=== PATIENT | female | born 1980 | race Hispanic/Latino ===

== ENCOUNTER 2019-12-27 13:01 | Emergency (ER) | payer OTHER, MEDICAID, SELFPAY ==
[2019-12-27 13:12] VITALS: PULSE 89; RESP 24; TEMP 35.6; O2SAT 100
[2019-12-27 13:20] VITALS: BP 130/73
--- NOTE | 2019-12-27 13:20 | DI.RAD.S_ITS ---
PROCEDURE: XR CHEST 1V INDICATIONS: suspected sepsis TECHNIQUE: One view of the chest was acquired. COMPARISON: [facility], , CHEST 2VW, 01/04/2009, 23:03. FINDINGS: Surgical changes and devices: None. Lungs and pleura: Lungs are clear. No pleural effusions or pneumothorax. Mediastinum: Mediastinal contours appear normal. Heart size is normal. Bones and chest wall: No suspicious bony lesions. Overlying soft tissues appear unremarkable. IMPRESSION: No acute cardiopulmonary abnormality. Dictated by: Taqueria Bains M.D. on 12/27/2019 at 12:57 Approved by: Taqueria Bains M.D. on 12/27/2019 at 12:58
[2019-12-27 13:40] VITALS: PULSE 78; RESP 18; O2SAT 98
[2019-12-27] MEDS: SODIUM CHLORIDE 0.9% 1,000 ML 1000 ML IV (13:46)
[2019-12-27 14:00] LABS: Add Manual Diff / Slide Review NO; Basophils Absolute Auto 0 /uL (0-100); Basophils Percent Auto 0.5 % (0-2); Eosinophils Absolute Auto 100 /uL (0-450); Eosinophils Percent Auto 1.2 % (2-4); Hematocrit 42.1 % (36-46); Hemoglobin 14.2 g/dL (12.0-16.0); Lymphocytes Absolute Auto 1500 /uL (1100-4500); Lymphocytes Percent Auto 26.5 % (25-40); Mean Corpuscular HGB Conc 33.8 % (30-36); Mean Corpuscular Hemoglobin 30.3 PG (26-34); Mean Corpuscular Volume 89.7 fL (80-100); Monocytes Absolute Auto 800 /uL (0-900); Monocytes Percent Auto 13.6 % (3-14); Neutrophils Absolute Auto 3400 /uL (1500-7000); Neutrophils Percent Auto 58.2 % (50-75); Platelet Count 315 X10^3/uL (150-400); Red Cell Distribution Width 12.6 % (11.6-14.8); White Blood Cell Count 5.8 X10^3/uL (4.5-11.0)
[2019-12-27 14:08] LABS: INR 1.1 (0.9-1.3); Prothrombin Time 12.3 SECONDS (10.1-12.7)
[2019-12-27 14:10] LABS: PTT Partial Thromboplastin Tim 29 SECONDS (26.4-36.2)
--- NOTE | 2019-12-27 14:10 | ED.FEVER ---
HPI - Fever General Chief Complaint: Fever Stated Complaint: Body Aches, Diarreha, Cough, Fever Time Seen by Provider: 12/27/19 13:41 Source: patient Mode of arrival: Ambulatory Limitations: no limitations History of Present Illness HPI Narrative: The patient is a 39-year-old female who presents with generalized body aches fever diarrhea abdominal pain ongoing for the last 2-3 days. She says she has had multiple episodes of liquid nonbloody diarrhea and even incontinence at times. She feels nauseated but no real vomiting. She has some abdominal cramping. She has had body aches and fever as well. Family members have had similar symptoms 1 was exposed to COVID-19. She denies any respiratory symptoms. She just got out of and ice bath in overall continues to not feel well. She was seen and evaluated at [facility] on December 24 for the same. Related Data Previous Rx's Medication Instructions Recorded ciprofloxacin HCl [Cipro] 500 mg PO BID #14 tab 12/27/19 metronidazole [Flagyl] 500 mg PO TID #21 tab 12/27/19 Allergies Allergy/AdvReac Type Severity Reaction Status Date / Time No Known Drug Allergies Allergy Verified 12/27/19 13:17 Review of Systems Review of Systems Narrative: GENERAL: See HPI HEENT: Denies sinus pain, ear pain, sore throat, difficulty swallowing, neck pain RESPIRATORY: Denies dyspnea, cough, wheezing, hemoptysis, sputum. CARDIOVASCULAR: Denies chest pain, palpitations, orthopnea, edema GASTROINTESTINAL: See HPI : Denies dysuria, frequency, incontinence, hematuria, urinary retention, flank pain. MUSCULOSKELETAL: Denies weakness, joint pain, or bony pain SKIN: No rash, no erythema, no pruritus NEUROLOGIC: Denies weakness, dizziness, headache, numbness, change in speech, confusion PSYCHIATRIC: No concerning psychosocial issues. 12 point review of systems is negative except for those stated above and HPI Patient History Social History Smoking Status: Current some day smoker Smoking Status: Current some day smoker Exam Initial Vital Signs Initial Vital Signs: Vital Signs Temperature 96.0 F L 12/27/19 13:12 Pulse Rate 89 12/27/19 13:12 Respiratory Rate 24 12/27/19 13:12 Pulse Oximetry 100 12/27/19 13:12 GENERAL: The patient appears to not feel well and in no acute distress. HEENT: Head atraumatic,EOMI, pupils reactive, face symmetric, moist mucous membranes CARDIOVASCULAR: Regular rate and rhythm without murmurs, rubs or gallops. RESPIRATORY: Breath sounds equal bilaterally, no wheezes rales or rhonchi. ABDOMEN: Soft mild diffuse tenderness EXTREMITIES: Normal range of motion, no clubbing or edema. Neurovascularly intact NEUROLOGICAL: Alert and oriented x4.Normal gait and speech. SKIN: Warm, dry, no laceration, no petechiae, no rashes or lesions. Course Orders Ordered: ED Orders 12/27/19 13:20 XR chest 1V Stat EKG-12 Lead Stat RT Consult Eval and Treat Now 12/27/19 13:30 COVID19 -ED/INPAT/OR/L&D Stat Complete Blood Count AUTO DIFF Stat Comprehensive Metabolic Panel Stat Lactate (Lactic Acid) Stat Lipase Stat Partial Thromboplastin Time Stat Procalcitonin Stat Prothrombin Time INR Stat 12/27/19 13:38 Blood Culture Stat 12/27/19 14:36 CT abdomen pelvis w con Stat Discontinued Medications Sodium Chloride (Normal Saline 0.9%) 1,000 mls @ 1,000 mls/hr IV BOLUS ONE Stop: 12/27/19 14:18 Last Infusion: 12/27/19 14:38 Dose: 0 mls/hr Documented by: Admin: 12/27/19 13:46 Dose: 1,000 mls/hr Documented by: PERFECTO Ketorolac Tromethamine (Toradol) 30 mg IV NOW ONE Stop: 12/27/19 14:32 Last Admin: 12/27/19 14:48 Dose: 30 mg Documented by: SCOTT Ondansetron HCl (Zofran) 4 mg IV NOW ONE Stop: 12/27/19 15:30 Last Admin: 12/27/19 15:42 Dose: 4 mg Documented by: TAYLOR Potassium Chloride (Klor-Con M20) 40 meq PO NOW ONE Stop: 12/27/19 15:34 Last Admin: 12/27/19 15:42 Dose: 40 meq Documented by: TAYLOR Vital Signs Vital signs: Vital Signs - 8 hr 12/27/19 13:12 12/27/19 13:20 12/27/19 13:40 Temperature 96.0 F L Pulse Rate 89 78 Respiratory Rate 24 18 Blood Pressure 130/73 Pulse Oximetry 100 98 12/27/19 14:51 12/27/19 16:25 Temperature 96.8 F L Pulse Rate 79 78 Respiratory Rate 20 16 Blood Pressure Pulse Oximetry 100 100 MDM - Fever Lab Data Attestation: I reviewed the patient's lab results. Result diagrams: 12/27/19 13:30 12/27/19 13:30 Labs: Lab Results 12/27/19 12/27/19 12/27/19 Range/Units 13:30 13:30 13:30 WBC 5.8 (4.5-11.0) X10^3/uL RBC 4.70 (4.0-5.2) X10^6/uL Hgb 14.2 (12.0-16.0) g/dL Hct 42.1 (36-46) % MCV 89.7 (80-100) fL MCH 30.3 (26-34) PG MCHC 33.8 (30-36) % RDW 12.6 (11.6-14.8) % Plt Count 315 (150-400) X10^3/uL Neut % (Auto) 58.2 (50-75) % Lymph % (Auto) 26.5 (25-40) % [place] % (Auto) 13.6 (3-14) % Eos % (Auto) 1.2 L (2-4) % Baso % (Auto) 0.5 (0-2) % Neut # (Auto) 3400 (2175-7398) /uL Lymph # (Auto) 1500 (0251-4678) /uL [place] # (Auto) 800 (0-900) /uL Eos # (Auto) 100 (0-450) /uL Baso # (Auto) 0 (0-100) /uL PT 12.3 (10.1-12.7) SECONDS INR 1.1 (0.9-1.3) APTT 29 (26.4-36.2) SECONDS Sodium (137-145) mmol/L Potassium (3.4-5.1) mmol/L Chloride (98-107) mmol/L Carbon Dioxide (22-32) mmol/L BUN (7-17) mg/dL Creatinine (0.52-1.04) mg/dL Estimated GFR (>60) mL/min BUN/Creatinine Ratio (6-22) Glucose (70-100) mg/dL Lactate (0.7-2.1) mmol/L Calcium (8.4-10.2) mg/dL Total Bilirubin (0.2-1.3) mg/dL AST (14-36) IU/L ALT (<35) IU/L Alkaline Phosphatase (38-126) U/L Total Protein (6.3-8.2) g/dL Albumin (3.5-5.0) g/dL Globulin (1.7-4.1) g/dL Albumin/Globulin Ratio (1.0-2.8) Lipase (23-300) U/L Procalcitonin < 0.05 (<0.5) ng/mL COVID-19 PCR (Negative) 12/27/19 12/27/19 12/27/19 Range/Units 13:30 13:30 13:30 WBC (4.5-11.0) X10^3/uL RBC (4.0-5.2) X10^6/uL Hgb (12.0-16.0) g/dL Hct (36-46) % MCV (80-100) fL MCH (26-34) PG MCHC (30-36) % RDW (11.6-14.8) % Plt Count (150-400) X10^3/uL Neut % (Auto) (50-75) % Lymph % (Auto) (25-40) % [place] % (Auto) (3-14) % Eos % (Auto) (2-4) % Baso % (Auto) (0-2) % Neut # (Auto) (7833-9098) /uL Lymph # (Auto) (3767-3087) /uL [place] # (Auto) (0-900) /uL Eos # (Auto) (0-450) /uL Baso # (Auto) (0-100) /uL PT (10.1-12.7) SECONDS INR (0.9-1.3) APTT (26.4-36.2) SECONDS Sodium 140 (137-145) mmol/L Potassium 3.1 L (3.4-5.1) mmol/L Chloride 103 (98-107) mmol/L Carbon Dioxide 30 (22-32) mmol/L BUN 5 L (7-17) mg/dL Creatinine 0.62 (0.52-1.04) mg/dL Estimated GFR > 60.0 (>60) mL/min BUN/Creatinine Ratio 8.1 (6-22) Glucose 124 H (70-100) mg/dL Lactate 1.4 (0.7-2.1) mmol/L Calcium 8.6 (8.4-10.2) mg/dL Total Bilirubin 0.3 (0.2-1.3) mg/dL AST 20 (14-36) IU/L ALT 11 (<35) IU/L Alkaline Phosphatase 74 (38-126) U/L Total Protein 6.8 (6.3-8.2) g/dL Albumin 3.7 (3.5-5.0) g/dL Globulin 3.1 (1.7-4.1) g/dL Albumin/Globulin Ratio 1.2 (1.0-2.8) Lipase 26 (23-300) U/L Procalcitonin (<0.5) ng/mL COVID-19 PCR Negative (Negative) Point of Care Testing Test Results Negative Urine Dip Bedside Urine Glucose Negative Bedside Urine Bilirubin - Negative Bedside Urine Ketone - Negative Urine Specific [place] 1.025 Bedside Urine Occult Blood +/- Bedside Urine pH 6.0 Bedside Urine Protein + 30 Bedside Urine Urobilinogen - Negative Bedside Urine Nitrite - Negative Bedside Urine Leukocytes - Negative Esterase Imaging Data CT scan - abdomen/pelvis: Radiologist's Impression: PROCEDURE: CT ABDOMEN PELVIS W CON INDICATIONS: on going ab pain with diarrhea TECHNIQUE: After the administration of intravenous contrast, 5 mm thick sections acquired from the diaphragm to the symphysis. 5 mm coronal and sagittal reformats were acquired. For radiation dose reduction, the following was used: automated exposure control, adjustment of mA and/or kV according to patient size. COMPARISON: None. FINDINGS: Image quality: Excellent. ABDOMEN: Lung bases: Lung bases are clear. Heart size is normal. Solid organs: Liver is normal in size and enhancement. Gallbladder is unremarkable. Biliary system is non dilated. Pancreas enhances normally. Spleen is normal in size and enhancement. No adrenal nodules. Kidneys demonstrate normal size and enhancement, without hydronephrosis. Peritoneum and bowel: No small bowel obstruction. Bowel wall thickening throughout the colon, moderate in the proximal colon and mild in the remainder of the colon. This is associated with mild surrounding fatty stranding. Additionally, there is a trace volume of free fluid in the right pericolic gutter and in the pelvis. Normal appendix. No free air. Nodes and vessels: No retroperitoneal or mesenteric adenopathy by size criteria. Aorta and inferior vena cava are normal in size. Miscellaneous: No ventral hernias. PELVIS: Genitourinary: Bladder wall thickness is normal. Anteverted uterus. Miscellaneous: No inguinal hernias or adenopathy. Bones: No suspicious bony lesions. No vertebral body compression fractures. Degenerative changes of the lower lumbar spine. The IMPRESSION: Diffuse colitis, most prominent in the proximal colon. This may be of infectious or inflammatory etiologies. Dictated by: Taqueria Bains M.D. on 12/27/2019 at 14:59 MDM Narrative Medical decision making narrative: The patient blood work is overall reassuring she remains hypokalemic similar to her previous all labs 2 days ago which I have reviewed. The CT does confirm diffuse colitis. She has had been having ongoing worsening abdominal pain and likely fever and chills. Will start her on antibiotics. At this time she tolerated oral fluid she was able to keep down replacement potassium she overall is feeling much better and feels ready and able to go home. Discharge Plan Departure Patient Disposition: Home Clinical Impression: Colitis Discharge Date/Time: 12/27/19 16:27 Instructions: DI for Colitis Activity Restrictions/Additional Instructions: *You have been diagnosed with colitis, hypokalemia *What to do: At this time recommend liquid diet and may advance as tolerated. Stay hydrated and rest. COVID-19 is negative. Your potassium is again noted to be low as it was previously this is likely from all the diarrhea. I recommend that this be rechecked with her primary care doctor next week *Continue to take medications as directed Cipro 500 mg twice a day for 7 days Flagyl 500 mg 3 times a day for 7 days *Follow up with your primary care provider in 2-3 days *Return to ER if you should have increasing abdominal pain, inability to tolerate fluids or any new, worsening or concerning symptoms Prescriptions: New ciprofloxacin HCl [Cipro] 500 mg tablet 500 mg PO BID Qty: 14 RF: 0 metronidazole [Flagyl] 500 mg tablet 500 mg PO TID Qty: 21 RF: 0 Referrals: [facility] [Outside]
[2019-12-27 14:12] LABS: Lactate (Lactic Acid) 1.4 mmol/L (0.7-2.1)
[2019-12-27 14:13] LABS: Alanine Aminotransferase 11 IU/L (<35); Albumin 3.7 g/dL (3.5-5.0); Albumin Globulin Ratio 1.2 (1.0-2.8); Alkaline Phosphatase 74 U/L (38-126); Aspartate Aminotransferase 20 IU/L (14-36); BUN Creatinine Ratio 8.1 (6-22); Bilirubin Total 0.3 mg/dL (0.2-1.3); Blood Urea Nitrogen 5 mg/dL (7-17); Calcium 8.6 mg/dL (8.4-10.2); Carbon Dioxide 30 mmol/L (22-32); Chloride 103 mmol/L (98-107); Estimated Glomerular Filt Rate > 60.0 mL/min (>60); Globulin 3.1 g/dL (1.7-4.1); Glucose 124 mg/dL (70-100); HEMOLYSIS < 15 (0-50); Lipase 26 U/L (23-300); Potassium 3.1 mmol/L (3.4-5.1); Sodium 140 mmol/L (137-145); Total Protein 6.8 g/dL (6.3-8.2)
[2019-12-27 14:28] LABS: COVID19 -Nasal RAPID Negative (Negative); Procalcitonin < 0.05 ng/mL (<0.5)
--- NOTE | 2019-12-27 14:36 | DI.CT.S_ITS ---
PROCEDURE: CT ABDOMEN PELVIS W CON INDICATIONS: on going ab pain with diarrhea TECHNIQUE: After the administration of intravenous contrast, 5 mm thick sections acquired from the diaphragm to the symphysis. 5 mm coronal and sagittal reformats were acquired. For radiation dose reduction, the following was used: automated exposure control, adjustment of mA and/or kV according to patient size. COMPARISON: None. FINDINGS: Image quality: Excellent. ABDOMEN: Lung bases: Lung bases are clear. Heart size is normal. Solid organs: Liver is normal in size and enhancement. Gallbladder is unremarkable. Biliary system is non dilated. Pancreas enhances normally. Spleen is normal in size and enhancement. No adrenal nodules. Kidneys demonstrate normal size and enhancement, without hydronephrosis. Peritoneum and bowel: No small bowel obstruction. Bowel wall thickening throughout the colon, moderate in the proximal colon and mild in the remainder of the colon. This is associated with mild surrounding fatty stranding. Additionally, there is a trace volume of free fluid in the right pericolic gutter and in the pelvis. Normal appendix. No free air. Nodes and vessels: No retroperitoneal or mesenteric adenopathy by size criteria. Aorta and inferior vena cava are normal in size. Miscellaneous: No ventral hernias. PELVIS: Genitourinary: Bladder wall thickness is normal. Anteverted uterus. Miscellaneous: No inguinal hernias or adenopathy. Bones: No suspicious bony lesions. No vertebral body compression fractures. Degenerative changes of the lower lumbar spine. The IMPRESSION: Diffuse colitis, most prominent in the proximal colon. This may be of infectious or inflammatory etiologies. Dictated by: Taqueria Bains M.D. on 12/27/2019 at 14:59 Approved by: Taqueria Bains M.D. on 12/27/2019 at 15:04
[2019-12-27] MEDS: KETOROLAC 60 MG/2 ML VIAL 30 MG IV (14:48)
[2019-12-27 14:51] VITALS: PULSE 79; RESP 20; O2SAT 100
--- NOTE | 2019-12-27 14:58 | PC.NURSE ---
Pts mother Ching called and stated that she will hot die picker the pt when she is ready to be discharged. Her number is [phone]
[2019-12-27] MEDS: POTASSIUM CHLORIDE 20 MEQ TAB 40 MEQ PO (15:42)
[2019-12-27] MEDS: ONDANSETRON 4 MG/2 ML INJ IV (15:42)
[2019-12-27 16:25] VITALS: PULSE 78; RESP 16; TEMP 36; O2SAT 100
== END 2019-12-27 16:27 | disposition home or self-care (01) ==
PROVIDERS: Emergency Provider Emergency Medicine
DX: K52.9 Noninfective gastroenteritis and colitis, unspecified (principal); E87.6 Hypokalemia; R50.9 Fever, unspecified; R10.9 Unspecified abdominal pain
CPT/HCPCS: 36415; 71045; 74177; 80053; 81003; 81025; 83605; 83690; 84145; 85025; 85610; 85730; 87040; 87635; 93005; 96361; 96374; 96375; 99284; 99285; J1885; J2405; Q9967